=== PATIENT | female | born 1980 | race Caucasian/White ===

== ENCOUNTER 2018-04-20 10:15 | Day surgery (SDC) | payer BC ==
[~2018-04-20] VITALS: Ht 167.6 cm; Wt 132.5 kg
[~2018-04-20 10:15] MED LIST: ALBU90OI61; Advair Hfa 230-12 GM; DEXILANT30 MG; DEXILANT30 MG PO; FIORINAL-COD 31 EACH; Maxalt10 MG; OLOP.1OPSO; VIIBRYD20 MG PO
== END 2018-04-20 11:58 | disposition home or self-care (01) ==
LOC: ORSCSDS 10:15
PROVIDERS: Internal Medicine Gastroenterology
PROC: 0DB68ZX Excision of Stomach, Via Natural or Artificial Opening Endoscopic, Diagnostic (ICD-10-PCS; principal; 2018-04-20 11:30)
DX: K21.9 Gastro-esophageal reflux disease without esophagitis (principal); K29.70 Gastritis, unspecified, without bleeding; L53.9 Erythematous condition, unspecified; R11.0 Nausea; R13.10 Dysphagia, unspecified; J45.909 Unspecified asthma, uncomplicated; Z87.891 Personal history of nicotine dependence; E66.01 Morbid (severe) obesity due to excess calories; Z68.42 Body mass index [BMI] 45.0-49.9, adult; Z79.899 Other long term (current) drug therapy
CPT/HCPCS: 88305; 88342; J7120

== ENCOUNTER 2024-05-05 08:08 | Emergency (ER) | payer OTHER ==
[~2024-05-05] VITALS: Ht 165.1 cm; Wt 133.4 kg
[2024-05-05] MEDS ORDERED: K-Dur10 MEQ (08:18)
[2024-05-05] MEDS ORDERED: DESVENLAFAXINE50 M3 PO (08:18)
[2024-05-05] MEDS ORDERED: LISI20 PO (08:18)
[2024-05-05] MEDS ORDERED: FUROSEMIDE40 MG PO (08:18)
[2024-05-05] MEDS ORDERED: ELIQUIS5 M3 PO (08:18)
[2024-05-05] MEDS ORDERED: RIZATRIPTAN10 M3 PO (08:19)
[2024-05-05] MEDS ORDERED: PREGABALIN75 MG PO (08:19)
[2024-05-05] MEDS ORDERED: Prochlorperazine Edisylate 10 mg Vial IV ONE (08:50)
[2024-05-05] MEDS ORDERED: Dexamethasone Sod Phos 10 MG/ML 1ML VIAL IV ONE (08:50)
[2024-05-05] MEDS ORDERED: DiphenhydrAMINE HCl 50 MG/ML 1ML Vial IV ONE (08:50)
[2024-05-05] MEDS ORDERED: NS 1,000 ML IV SCH (08:50)
[2024-05-05] MEDS ORDERED: Ketorolac Tromethamine 15mg Vial IV ONE (08:50)
[2024-05-05 11:30] VITALS: BP 156/103
== END 2024-05-05 11:38 | disposition home or self-care (01) ==
LOC: ER 08:08
DX: I67.6 Nonpyogenic thrombosis of intracranial venous system (principal); G43.909 Migraine, unspecified, not intractable, without status migrainosus
CPT/HCPCS: 96361; 96374; 96375; 99284-25; J0780; J1100; J1200; J1885; J7030

== ENCOUNTER → 2024-07-30 | Outpatient (CLI) | payer OTHER ==
[~2024-07-30] MED LIST changes: +DESVENLAFAXINE50 M3 PO; +ELIQUIS5 M3 PO; +FUROSEMIDE40 MG PO; +K-Dur10 MEQ; +LISI20 PO; +PREGABALIN75 MG PO; +RIZATRIPTAN10 M3 PO
[2024-08-04 13:16] LABS: 6-ACETYLMORPHINE, URN, QUANT <10 ng/mL; CODEINE, URN, QUANT <20 ng/mL; HYDROCODONE, URN, QUANT <20 ng/mL; HYDROMORPHONE, URN, QUANT <20 ng/mL; MORPHINE, URN, QUANT <20 ng/mL; NORHYDROCODONE, URN, QUANT <20 ng/mL; NOROXYCODONE, URN, QUANT <20 ng/mL; NOROXYMORPHONE, URN, QUANT <20 ng/mL; OXYCODONE, URN, QUANT <20 ng/mL; OXYMORPHONE, URN, QUANT <20 ng/mL
== END ==
LOC: LAB 18:54 → LAB SHORT 18:54
PROVIDERS: Family Medicine
DX: F11.90 Opioid use, unspecified, uncomplicated (principal)
CPT/HCPCS: 80307; G0480